=== PATIENT | male | born 1960 | race Caucasian/White ===

== ENCOUNTER 2019-07-01 06:27 | Emergency (ER) | payer SELFPAY ==
--- NOTE | ~2019-07-01 | XR_ITS ---
EXAMINATION: XR hand LT min 3V DATE: 07/01/2019 07:06 INDICATION: Nail passed to the fifth digit TECHNIQUE: Posteroanterior, oblique and lateral views of the left hand were obtained. COMPARISON: None. FINDINGS: Bone alignment is normal. No fracture. Skin laceration at the plantar aspect of the distal phalanx of the left fifth digit. No radiopaque foreign bodies. Mild polyarticular osteoarthritis at several of the metacarpophalangeal and interphalangeal joints. Small erosion at the radial base of the first pro ximal phalanx. IMPRESSION: 1. No fracture or radiopaque foreign body. 2. Mild polyarticular osteoarthritis. 3. Small defect at the radial base of the left fifth proximal phalanx with differential including ero angel related to gout or other inflammatory arthritis or sequela of old trauma. Reviewed, dictated and finalized at location A. IMPRESSION: 1. No fracture or radiopaque foreign body. 2. Mild polyarticular osteoarthritis. 3. Small defect at the radial base of the left fifth proximal phalanx with diff erential including erosion related to gout or other inflammatory arthritis or s equela of old trauma.
[2019-07-01 06:32] VITALS: BP 138/104; PULSE 87; RESP 18; TEMP 36.3; O2SAT 97
--- NOTE | 2019-07-01 06:51 | PC.NURSE ---
md pulled nail out of finger at this time. finger currently soaking in betadine per md verbal orders.
[2019-07-01] MEDS: TETANUS,DIPHTHERIA,AC PERTUSSIS ADULT (0.5 ML) BOOSTRIX IM (06:56)
--- NOTE | 2019-07-01 06:57 | PC.NURSE ---
spoke w/ pt's [id number] at [phone]. she is sending pt's son alexandre up here to see patient.
--- NOTE | 2019-07-01 07:48 | PC.NURSE ---
wound dressed with triple antibiotic and covered with 2x2 and cling wrapped, pt aram well
--- NOTE | 2019-07-01 07:50 | ED.GENADULT ---
HPI - General Adult General Chief complaint: Wound/Laceration Stated complaint: nail through finger Time Seen by Provider: 07/01/19 06:33 Source: patient Mode of arrival: EMS Limitations: no limitations History of Present Illness HPI narrative: 59-year-old with no major medical problems here with complaints of nail stuck in the left fifth finger, patient states that he was working on a wooden pallet and accidentally injured himself. He denies any other injuries. Onset (ago): hour(s) (1) Location: upper extremity (Left fifth finger) Radiation: non-radiation Severity: moderate Severity scale (1-10): 7 Quality: aching Pain Consistency: constant Relieving factors: none Exacerbating factors: none Associated symptoms: denies other symptoms Related Data Allergies Allergy/AdvReac Type Severity Reaction Status Date / Time Penicillins Allergy Intermediate Loss of Verified 07/04/17 14:36 Consciousness Review of Systems Review of Systems: All systems reviewed & are unremarkable except as noted in HPI and below Constitutional: Constitutional: Reports no additional constitutional complaints Eyes: Eyes: Reports no additional eye complaints ENT: Reports system reviewed and no additional complaints, except as documented Cardiovascular: Cardiovascular: Reports no additional cardiovascular complaints Respiratory: Respiratory: Reports no additional respiratory complaints Gastrointestinal: Gastrointestinal: Reports no additional gastrointestinal complaints Musculoskeletal: Musculoskeletal: Reports no additional musculoskeletal complaints Integumentary/Breasts: Skin/Breast: Reports system reviewed and no additional complaints, except as docu Neurologic: Reports system reviewed and no additional complaints, except as documented Exam Narrative: Exam Narrative: GENERAL: Well-appearing, well-nourished, and in no acute distress. HEAD: Normocephalic, atraumatic. EYES: PERRLA and EOMI. ENT: Nares clear, no rhinorrhea or epistaxis. Mucous membranes moist. NECK: Supple. CHEST: Clear to auscultation. No respiratory distress. HEART: Regular rate and rhythm. No murmur heard. Normal peripheral pulses. EXTREMITIES: Normal range of motion. No edema. Fifth finger stuck with the nail on wooden 2 x 2 but very minimal bleeding SKIN: Warm, dry, no rash. NEURO: No focal deficits. Alert and oriented x3. PSYCH: Normal mood and affect. Course Vital Signs Vital signs: Vital Signs Temperature 36.3 C L 07/01/19 06:32 Pulse Rate 87 07/01/19 06:32 Respiratory Rate 18 07/01/19 06:32 Blood Pressure 138/104 H 07/01/19 06:32 Pulse Oximetry 97 07/01/19 06:32 Temperature 36.3 C L 07/01/19 06:32 Pulse Rate 87 07/01/19 06:32 Respiratory Rate 18 07/01/19 06:32 Blood Pressure 138/104 H 07/01/19 06:32 Pulse Oximetry 97 07/01/19 06:32 Procedures Other Procedure Procedure 1: Other Procedure: Procedure note for foreign body removal from the left fifth finger Inform patient about the procedure. 1% lidocaine with epi was infiltrated in the distal end of the finger with gentle manipulation nail was removed. He tolerated procedure well no further bleeding. X-ray was obtained which showed no evidence of fracture Medical Decision Making Vital Signs Vital Signs: Vital Signs Temperature 36.3 C L 07/01/19 06:32 Pulse Rate 87 07/01/19 06:32 Respiratory Rate 18 07/01/19 06:32 Blood Pressure 138/104 H 07/01/19 06:32 Pulse Oximetry 97 07/01/19 06:32 Temperature 36.3 C L 07/01/19 06:32 Pulse Rate 87 07/01/19 06:32 Respiratory Rate 18 07/01/19 06:32 Blood Pressure 138/104 H 07/01/19 06:32 Pulse Oximetry 97 07/01/19 06:32 Discharge Plan Discharge Clinical Impression: Foreign body finger Patient Disposition: Home, Self-Care Condition: Stable Instructions: Antibiotic Form, Puncture Wound (DC) Additional Instructions: Keep the area clean take antibiotic as prescribed. I
== END 2019-07-01 08:19 | disposition home or self-care (01) ==
PROVIDERS: Emergency Provider Family Medicine; PCP Internal Medicine
DX: S61.247A Puncture wound with foreign body of left little finger without damage to nail, initial encounter (principal); Z23 Encounter for immunization; W45.0XXA Nail entering through skin, initial encounter
CPT/HCPCS: 73130; 90471; 90715; 99283